=== PATIENT | female | born 1965 | race Caucasian/White ===

== ENCOUNTER 2017-08-06 16:50 | Outpatient (CLI) | payer MEDICARE | END 2017-08-06 16:51 | disposition home or self-care (01) | LOC: LABBT 16:50 | PROVIDERS: ATTEND Specialist | DX: Z01.812 Encounter for preprocedural laboratory examination (principal); E66.01 Morbid (severe) obesity due to excess calories; Z68.37 Body mass index [BMI] 37.0-37.9, adult ==